=== PATIENT | female | born 1985 | race Caucasian/White ===

== ENCOUNTER 2017-12-18 09:47 | Inpatient (IN) | payer BC ==
[~2017-12-18] VITALS: Ht 165.1 cm; Wt 73.0 kg
[2017-12-18] VITALS (12 sets, daily range): BP systolic 94–107; BP diastolic 47–60; PULSE 62–79; RESP 16–24; TEMP 97.9–98.3; O2SAT 97–100
[2017-12-18] MEDS ORDERED: ACYC400T PO (10:12)
[2017-12-18] MEDS ORDERED: LACTATED RINGER'S 1000 ML INJ 1,000 ML IV ONE (10:41)
--- NOTE | 2017-12-18 10:41 | PD ---
HPI Chief Complaint Contractions Date Seen: Dec 18, 2017 Time Seen: 10:31 Travel History International Travel<30 Days: No Contact w/Intl Traveler<30Days: No Known Affected Area: No History of Present Illness HPI 32-year-old who is at 39 weeks 6 days comes in complaining of contractions , light vaginal bleeding, and some thick vaginal discharge. Contractions began about midnight and they have been getting steadily worse through the night. Last cervical exam was Friday cervix was 1 cm at the time. Patient has HSV and noticed the beginnings of a lesion last Friday, it became a full-fledged lesion on the left side of the vagina and a second lesion around the anal area and she started acyclovir on Friday at 400 mg 3 times a day. Lesion has not completely healed at this time Weeks Gestation: 39 Para: 0 : 1 History Past Medical History Medical History: Denies Significant Hx Past Surgical History Surgical History: No Previous Surgery Family History Family History: Negative Social History Alcohol Use: No Tobacco Use: No Substance Abuse: No Allergies-Medications (Allergen,Severity, Reaction): Coded Allergies: Sulfa (Sulfonamide Antibiotics) (Verified Allergy, Mild, RASH, 12/18/17) ITCHY, REDNESS AND BURNING Home Meds Reported Medications Acyclovir (Acyclovir) 400 Mg Tab, 400 MG PO TID for Mgmt Viral Infection, TAB 0 Refills 12/18/17 Review of Systems Except as stated in HPI: all other systems reviewed are Neg Physical Exam Narrative GENERAL: Well-nourished, well-developed patient. SKIN: Warm and dry. HEAD: Normocephalic and atraumatic. EYES: No scleral icterus. No injection or drainage. ENT: No nasal drainage noted. Mucous membranes pink. Airway patent. NECK: Supple, trachea midline. No JVD. CARDIOVASCULAR: Regular rate and rhythm without murmurs, gallops, or rubs. RESPIRATORY: Breath sounds equal bilaterally. No accessory muscle use. ABDOMEN/GI: Abdomen soft, non-tender, bowel sounds present, no rebound, no guarding Gravid to [36-] weeks size Fundal Height: [-] GENITOURINARY: External Genitalia: intact and normal in appearance BUS glands: [-] Erythema noted to the left of the vaginal introitus at the perineum and another lesion noted around anal opening Cervix: [-] Anterior Dilatation: [-] 4 Effacement: [-] 90 Station: [-] -1 Presentation: [-] Vertex Membranes: [intact or ruptured] intact Uterine Contractions: [-] Every 5 FHT's: Category: [-] 1 Baseline: [-] Reactive: [-] 140 moderate Variability: [-] Moderate Decels: [-] Absent EXTREMITIES: No cyanosis or edema. BACK: Nontender without obvious deformity. No CVA tenderness. NEUROLOGICAL: Awake and alert. Motor and sensory grossly within normal limits. Five out of 5 muscle strength in all muscle groups. Normal speech. Data Data Vital Signs Reviewed: Yes MDM Medical Record Reviewed: Yes Narrative Course / MDM 32-year-old who is an active labor at 4 cm with active HSV lesions B strep is negative Plan Patient understands the need for primary section given the recurrent nature of HSV lesions She last ate at 2 AM, drink water approximately an hour ago Dr Case is aware of admission Diagnosis Diagnosis: Primary Impression: 39 weeks gestation of Additional Impressions: Uterine contractions during Herpes genitalia Cherry Martinez MD Dec 18, 2017 10:41
[2017-12-18] MEDS ORDERED: LACTATED RINGER'S 1000 ML INJ 1,000 ML IV SCH ×2 (11:11→17:59)
[2017-12-18 11:25] LABS: AUTOMATED NEUTROPHIL # 9.1 TH/MM3 (1.8-7.7); BASOPHIL % 0.1 % (0.0-2.0); EOSINOPHIL % 0.3 % (0.0-4.0); HEMATOCRIT 35.5 % (35.0-46.0); LYMPH % 15.2 % (9.0-44.0); LYMPHOCYTE # 1.8 TH/MM3 (1.0-4.8); MEAN CELL VOLUME 89.2 FL (80.0-100.0); MEAN CORPUSCULAR HEMOGLOBIN 30.1 PG (27.0-34.0); MEAN CORPUSCULAR HGB CONC 33.8 % (32.0-36.0); MEAN PLATELET VOLUME 9.9 FL (7.0-11.0); MONO % 7.5 % (0.0-8.0); MONOCYTE # 0.9 TH/MM3 (0-0.9); NEUT % 76.9 % (16.0-70.0); PLATELET COUNT 218 TH/MM3 (150-450); RED BLOOD COUNT 3.98 MIL/MM3 (4.00-5.30); RED CELL DISTRIBUTION WIDTH 14.2 % (11.6-17.2); WHITE BLOOD COUNT 11.8 TH/MM3 (4.0-11.0)
[2017-12-18] MEDS ORDERED: ACETAMINOPHEN 1000 MG/100 ML 100 ML IV ONE (11:45)
[2017-12-18] MEDS ORDERED: MORPHINE SULFATE PF 5 MG/10 ML VIAL ONE (11:45)
[2017-12-18] MEDS ORDERED: ceFAZolin 2 GM PREMIX 50 ML IV SCH (11:45)
[2017-12-18] MEDS ORDERED: ONDANSETRON HCL 4 MG/2 ML VIAL IV ONE (12:00)
[2017-12-18] MEDS ORDERED: DEXAMETHASONE SOD PHOS 4 MG/ML VIAL IV ONE (12:00)
[2017-12-18] MEDS ORDERED: OXYTOCIN 10 UNIT/ML AMP IV ONE (12:00)
[2017-12-18] MEDS ORDERED: PHENYLEPH/NS 1000 MCG/10 ML SYR IV ONE (12:00)
[2017-12-18] MEDS ORDERED: ceFAZolin INJ 1,000 MG VIAL IV ONE (12:00)
[2017-12-18] MEDS ORDERED: CITRIC ACID-SODIUM CITRATE LIQ 30 ML UDC PO SCH (12:15)
--- NOTE | 2017-12-18 12:59 | PD.OB.DELI ---
Procedure Note Section Procedure Pre Op Diagnosis: (1) 39 weeks gestation of (2) Herpes genitalia Post Op Diagnosis: (1) 39 weeks gestation of (2) Herpes genitalia Performed by Rox Case Procedure: Primary Low Transverse Sec Indication for delivery: Maternal medical problems Previous condition: None Informed consent obtained: For anesthesia, For procedure Confirmed correct: Patient, Procedure, Site, Time-out taken Anesthesia: Spinal Medication prior to procedure: As documented in eMAR Monitoring during procedure: Blood pressure monitoring, Pulse oximetry Urinary catheter: Inserted using sterile technique, To dependent drainage, ml urine output (200) Sterile preparation: With 2% chlorexidine (Hibiclens) Position: Supine with wedge to right side, Supine with safety belt applied Operative Features Uterine Incision: Low transverse w/knife / blunt ext Membranes Ruptured: Previously (SROM afer spinal placed) Presentation: Other (LOT, asynclitic, mild molding) Delivery date: Dec 18, 2017 Delivery time: 12:15 Delivery of : Uneventful : Male One Minute : 8 Five Minute : 9 Weight: 3750g Status of infant: Viable, Cord blood, Nursery present Placenta delivered: Intact Medications: Antibiotics, Oxytocin Estimated blood loss: 500ml Procedure tolerated: Well Maternal Condition: Stable Condition: Stable Procedure in detail dictation Rox Case MD Dec 18, 2017 12:58
[2017-12-18] MEDS ORDERED: OXYTOCIN 30 UNITS-500ML PREMIX 500 ML IV ONE (13:00)
[2017-12-18] MEDS ORDERED: oxyCODONE/ACETAMINOPHEN 5 MG/325 MG TAB PO PRN (13:00)
[2017-12-18] MEDS ORDERED: ZOLPIDEM TARTRATE 5 MG TAB PO PRN (13:00)
[2017-12-18] MEDS ORDERED: SIMETHICONE 80 MG CHEWABLE TAB PO PRN (13:00)
[2017-12-18] MEDS ORDERED: SODIUM CHLORIDE 0.9% FLUSH 10 ML FLUSH IV FLUSH PRN (13:00)
[2017-12-18] MEDS ORDERED: ONDANSETRON HCL 4 MG/2 ML VIAL IV PUSH PRN (13:00)
[2017-12-18] MEDS ORDERED: EPIDURAL-DIPHENHYDRAMINE HCL 50 MG CAP PO PRN (15:00)
[2017-12-18] MEDS ORDERED: EPIDURAL-DIPHENHYDRAMINE HCL 50 MG/ML VIAL IV PUSH PRN (15:00)
[2017-12-18] MEDS ORDERED: EPIDURAL-DO NOT ADMINISTER ANTICOAGULANTS PRN (15:00)
[2017-12-18] MEDS ORDERED: EPIDURAL-NALOXONE HCL 0.4 MG/ML AMP IV PUSH PRN (15:00)
[2017-12-18] MEDS ORDERED: EPIDURAL-NO SYSTEMIC NARCOTICS PRN (15:00)
[2017-12-18] MEDS: ACYCLOVIR 200 MG CAP PO SCH (18:22)
[2017-12-18] MEDS: DOCUSATE SODIUM 50 MG/SENNA 8.6 MG TAB PO PRN (20:36)
[2017-12-18] MEDS: IBUPROFEN 600 MG TAB PO PRN (20:36)
[2017-12-18] MEDS ORDERED: OXYTOCIN 30 UNITS-500ML PREMIX 500 ML IV PRN (23:00)
[2017-12-18] MEDS: ACETAMINOPHEN 1000 MG/100 ML 100 ML IV SCH (23:36)
[2017-12-19 01:06] VITALS: BP 93/51; PULSE 68; RESP 18; TEMP 98.4
[2017-12-19 05:02] VITALS: BP 86/50; PULSE 72; RESP 17; TEMP 97.5
[2017-12-19] MEDS: ACETAMINOPHEN 1000 MG/100 ML 100 ML IV SCH (06:14)
[2017-12-19 07:50] VITALS: BP 90/48; PULSE 72; RESP 18; TEMP 98
[2017-12-19 07:53] LABS: AUTOMATED NEUTROPHIL # 11.5 TH/MM3 (1.8-7.7); BASOPHIL % 0.2 % (0.0-2.0); EOSINOPHIL # 0.1 TH/MM3 (0-0.4); EOSINOPHIL % 0.4 % (0.0-4.0); HEMATOCRIT 30.4 % (35.0-46.0); HEMOGLOBIN 10.2 GM/DL (11.6-15.3); LYMPHOCYTE # 2.6 TH/MM3 (1.0-4.8); MEAN CELL VOLUME 89.4 FL (80.0-100.0); MEAN CORPUSCULAR HGB CONC 33.5 % (32.0-36.0); MEAN PLATELET VOLUME 9.5 FL (7.0-11.0); MONO % 7.1 % (0.0-8.0); MONOCYTE # 1.1 TH/MM3 (0-0.9); NEUT % 75.3 % (16.0-70.0); PLATELET COUNT 184 TH/MM3 (150-450); RED CELL DISTRIBUTION WIDTH 14.3 % (11.6-17.2); WHITE BLOOD COUNT 15.3 TH/MM3 (4.0-11.0)
[2017-12-19] MEDS: ACYCLOVIR 200 MG CAP PO SCH ×3 (09:38→18:00)
[2017-12-19] MEDS: IBUPROFEN 600 MG TAB PO PRN ×3 (10:19→22:22)
[2017-12-19] MEDS: oxyCODONE/ACETAMINOPHEN 5 MG/325 MG TAB PO PRN ×3 (10:19→22:22)
--- NOTE | 2017-12-19 11:16 | HHI.OB ---
Subjective Post Operative Day: 1 Remarks Doing well post section for failure to descend Objective Vitals/I&O Vital Signs Date Time Temp Pulse Resp B/P (MAP) Pulse Ox O2 Delivery O2 Flow Rate FiO2 12/19/17 07:50 98.0 72 18 12/19/17 07:50 90/48 (62) 12/19/17 05:02 97.5 72 17 86/50 (62) 12/19/17 01:06 98.4 68 18 93/51 (65) 12/18/17 20:00 104/47 (66) 12/18/17 19:00 104/47 (66) 12/18/17 19:00 98.3 69 16 97 12/18/17 14:50 98.2 18 12/18/17 14:50 68 107/60 (76) 12/18/17 14:16 62 18 96/53 (67) 98 12/18/17 14:01 22 99 12/18/17 14:00 71 97/55 (69) 12/18/17 13:46 72 17 105/50 (68) 100 12/18/17 13:31 67 24 105/57 (73) 100 12/18/17 13:17 68 20 99 12/18/17 13:15 94/52 (66) 12/18/17 13:04 97.9 12/18/17 13:03 79 20 97 12/18/17 13:03 100/58 (72) Result Diagram: 12/19/17 0727 Objective Remarks GENERAL: Well-nourished, well-developed patient. CARDIOVASCULAR: Regular rate and rhythm without murmurs, gallops, or rubs. RESPIRATORY: Breath sounds equal bilaterally. No accessory muscle use. ABDOMEN/GI: Abdomen soft, non-tender, bowel sounds present. Incision: Clean, dry and intact. Fundus: Firm, non-tender at umbilicus. GENITOURINARY: Light to moderate bleeding. EXTREMITIES: No cyanosis or edema, non-tender, without signs of DVT. Medications and IVs Current Medications Medications (Trade) Dose Ordered Sig/Margarita Route Start Time Stop Time Status Last Admin Lactated Ringer's 1,000 ml @ 100 mls/hr Q10H IV 12/18/17 17:59 12/19/17 13:58 Oxytocin 500 ml @ 100 mls/hr UNSCH X1 PRN IV 12/18/17 23:00 12/19/17 22:59 (NS Flush) 2 ml BID IV FLUSH 12/18/17 21:00 (NS Flush) 2 ml UNSCH PRN IV FLUSH 12/18/17 13:00 (Mylicon Chew) 80 mg QID PRN PO 12/18/17 13:00 (Motrin) 600 mg Q6H PRN PO 12/18/17 13:00 12/19/17 10:19 (Percocet 5-325 Mg) 1 tab Q4H PRN PO 12/18/17 13:00 12/19/17 10:19 (Percocet 5-325 Mg) 2 tab Q4H PRN PO 12/18/17 13:00 (Nerissa-Colace) 2 tab Q12H PRN PO 12/18/17 13:00 12/18/17 20:36 (Ambien) 5 mg HS PRN PO 12/18/17 13:00 (M-M-R Ii Inj) 0.5 ml ONCE ONCE SQ 12/19/17 16:00 12/19/17 16:01 (Boostrix Inj) 0.5 ml ONCE ONCE IM 12/19/17 16:00 12/19/17 16:01 (Zofran Inj) 4 mg Q6H PRN IV PUSH 12/18/17 13:00 (Zovirax) 400 mg TID PO 12/18/17 18:00 12/19/17 09:38 Miscellaneous Information NO SYSTEMIC NARCOTICS TO BE GIVEN FO... UNSCH PRN .XX 12/18/17 15:00 12/19/17 14:59 (Narcan Inj) 0.4 mg UNSCH PRN IV PUSH 12/18/17 15:00 12/19/17 14:59 (Benadryl Inj) 25 mg Q6H PRN IV PUSH 12/18/17 15:00 12/19/17 14:59 (Benadryl) 50 mg Q6H PRN PO 12/18/17 15:00 12/19/17 14:59 Miscellaneous Information ALL NURSING DEPARTMENTS UNSCH PRN .XX 12/18/17 15:00 12/19/17 14:59 Assessment/Plan Assessment and Plan POD 1 doing well intends to nurse counseled on circumcision Home POD 2 or 3 Jessi Lake MD Dec 19, 2017 11:16
--- NOTE | 2017-12-19 11:17 | HHI.DCPOC ---
Discharge Care Plan Report Symptoms to Your Doctor -Temperature above 100.5 degrees -Redness, of incision or excessive or foul smelling drainage -Unusual pain or calf pain -Increased vaginal bleeding -Painful or difficulty urinating -Feelings of extreme sadness or anxiety after 2 weeks Goals to Promote Your Health * To prevent worsening of your condition and complications * To maintain your health at the optimal level Directions to Meet Your Goals Take your medications as prescribed Follow your dietary instruction Follow activity as directed Ensure plenty of rest for recovery Drink fluids for hydration Keep your appointments as scheduled Take your immunizations and boosters as scheduled If your symptoms worsen call your PCP, if no PCP go to Urgent Care Center or Emergency Room Smoking is Dangerous to Your Health. Avoid second hand smoke Call the 24-hour crisis hotline for domestic abuse at Jessi Lake MD Dec 19, 2017 11:17
--- NOTE | 2017-12-19 11:51 | MP ---
cc: Rox Case MD DATE OF OPERATION: 12/18/2017 PREOPERATIVE DIAGNOSIS: 1. Intrauterine at 39 weeks. 2. Active herpes outbreak. POSTOPERATIVE DIAGNOSIS: 1. Intrauterine at 39 weeks. 2. Active herpes outbreak. INDICATIONS FOR PROCEDURE: The patient is a 32-year-old G1, P0, with intrauterine at 39 weeks plus, who presented in active labor with active herpes lesions. Given the risks, decision was made to proceed with a primary delivery. PROCEDURE PERFORMED: Primary low transverse delivery. SURGEON: Rox Case MD [employer]: [employer]. ANTIBIOTICS: Ancef 2 grams IV given preincision. DEEP VENOUS THROMBOSIS PROPHYLAXIS: Sequential compression devices, bilateral extremities. INTRAVENOUS FLUIDS: 1200 mL of lactated Ringer. URINE OUTPUT: 200 mL of clear yellow urine at the end of the case. ESTIMATED BLOOD LOSS Was 100 mL. INTRAOPERATIVE FINDINGS: Viable male infant with Apgars of 8 and 9 at 1 minute and 5-minute respectively. weight of 8 pounds and 4 ounces left occiput transverse presentation, asynclitic and with minor molding noted. Placenta intact, 3-vessel cord. Uterus, tubes and ovaries within normal limits. PROCEDURE IN DETAIL: After the informed consent, the patient was taken to the operating room, where spinal anesthesia was administered without complication. She was placed in the dorsal supine position with a slight leftward tilt. SCDs were in place. Her was placed under sterile condition. The abdomen was prepped and draped in normal sterile fashion. A Pfannenstiel skin incision was made with a scalpel, carried down to the underlying layer of fascia with the Bovie. The fascia was incised in the midline. This incision was extended bilaterally with Worley scissors. The superior aspect of the fascial incision was grasped with Charisse clamps, elevated and the rectus muscles dissected off bluntly, as well as with aid of Worley scissors. The same was repeated inferior aspect. The rectus muscles were in the midline. The peritoneum was entered bluntly. This incision was extended bluntly. The bladder blade was inserted. A bladder flap was created with Metzenbaum scissors. The bladder blade was then reinserted. A low transverse uterine incision was made with a scalpel and extended bluntly. The head was grasped, flexed and elevated from the pelvis. Suction was noted. Of note, as the patient was being prepped, she was noted to have a small leakage of amniotic fluid, considered to have spontaneously ruptured immediately prior to surgery. Fluid around the infant was clear. The head was delivered with gentle fundal pressure. The body readily followed. Delayed cord clamping was performed. Pitocin was started immediately after delivery of the infant. The cord was doubly clamped and cut. Baby was handed off to waiting nursery team. The placenta was delivered with gentle cord traction and uterine massage. The uterus was exteriorized. All of the debris and membranes was removed with moist laparotomy sponges. The uterus was repaired in 2 layers with #1 chromic in a running locked fashion, followed by an imbricating layer. Posterior cul-de-sac was irrigated and suctioned. The hysterotomy was inspected and noted to be hemostatic. The uterus was returned to the abdomen. The anterior cul-de-sac was irrigated and suctioned. Again, the hysterotomy was noted to be hemostatic. The peritoneum was closed with 2-0 chromic in a running fashion. The fascia was closed with a 4-0 Vicryl in a running fashion. Subcutaneous tissue was irrigated and hemostasis was obtained with the Bovie. The skin was closed with 3-0 Monocryl, Steri-Strips and a PermaFoam dressing were placed. The patient tolerated the procedure well. She was taken to PACU in stable condition. She is an acceptable candidate for vaginal after delivery. COMPLICATIONS: None. COUNTS: Correct x 3. SPECIMEN: Cord blood. MD MICHELLE Zavaleta/BRIANNE , 08:21 PM , 08:43 PM
[2017-12-19] MEDS ORDERED: DIPHTH/TETANUS/ACEL PERTUSSIS (BOOSTER) 0.5 ML VIAL/PFS IM ONE (16:00)
[2017-12-19] MEDS ORDERED: MEASLES, MUMPS, RUBELLA VACCINE 0.5 ML VIAL SQ ONE (16:00)
[2017-12-19 20:00] VITALS: BP 93/54; PULSE 73; RESP 16; TEMP 98.1; O2SAT 97
[2017-12-19] MEDS: DOCUSATE SODIUM 50 MG/SENNA 8.6 MG TAB PO PRN (22:22)
[2017-12-20] MEDS: oxyCODONE/ACETAMINOPHEN 5 MG/325 MG TAB PO PRN ×3 (03:22→20:04)
[2017-12-20] MEDS: IBUPROFEN 600 MG TAB PO PRN ×3 (04:52→20:03)
[2017-12-20 07:00] VITALS: BP 89/49; PULSE 90; RESP 18; TEMP 97.9; O2SAT 99
[2017-12-20 07:30] VITALS: PULSE 85
--- NOTE | 2017-12-20 07:33 | HHI.OB ---
Subjective Post Operative Day: 2 Objective Vitals/I&O Vital Signs Date Time Temp Pulse Resp B/P (MAP) Pulse Ox O2 Delivery O2 Flow Rate FiO2 12/20/17 07:00 97.9 90 18 89/49 (62) 99 12/19/17 20:00 98.1 73 16 93/54 (67) 97 12/19/17 07:50 98.0 72 18 12/19/17 07:50 90/48 (62) Result Diagram: 12/19/17 0727 Objective Remarks GENERAL: Well-nourished, well-developed patient. CARDIOVASCULAR: Regular rate and rhythm without murmurs, gallops, or rubs. RESPIRATORY: Breath sounds equal bilaterally. No accessory muscle use. ABDOMEN/GI: Abdomen soft, non-tender, bowel sounds present. Incision: Clean, dry and intact. Fundus: Firm, non-tender at umbilicus. GENITOURINARY: Light to moderate bleeding. EXTREMITIES: No cyanosis or edema, non-tender, without signs of DVT. Medications and IVs Current Medications Medications (Trade) Dose Ordered Sig/Margarita Route Start Time Stop Time Status Last Admin (NS Flush) 2 ml BID IV FLUSH 12/18/17 21:00 (NS Flush) 2 ml UNSCH PRN IV FLUSH 12/18/17 13:00 (Mylicon Chew) 80 mg QID PRN PO 12/18/17 13:00 (Motrin) 600 mg Q6H PRN PO 12/18/17 13:00 12/20/17 04:52 (Percocet 5-325 Mg) 1 tab Q4H PRN PO 12/18/17 13:00 12/20/17 03:22 (Percocet 5-325 Mg) 2 tab Q4H PRN PO 12/18/17 13:00 (Nerissa-Colace) 2 tab Q12H PRN PO 12/18/17 13:00 12/19/17 22:22 (Ambien) 5 mg HS PRN PO 12/18/17 13:00 (Zofran Inj) 4 mg Q6H PRN IV PUSH 12/18/17 13:00 (Zovirax) 400 mg TID PO 12/18/17 18:00 12/19/17 18:00 Assessment/Plan Assessment and Plan POD 1 doing well intends to nurse counseled on circumcision Home POD 2 or 3 POD 2 doing well with nursing baby post circumcision home in am Friday Jessi Lake MD Dec 20, 2017 07:33
[2017-12-20] MEDS ORDERED: OXYC1TAB63 PO (07:34)
[2017-12-20 07:39] VITALS: BP 94/55
[2017-12-20] MEDS: ACYCLOVIR 200 MG CAP PO SCH ×2 (09:39→13:18)
[2017-12-20] MEDS: SODIUM CHLORIDE 0.9% FLUSH 10 ML FLUSH IV FLUSH SCH (09:47)
[2017-12-20 15:30] VITALS: BP 95/52; PULSE 76; RESP 16; TEMP 97.2
[2017-12-20] MEDS: DOCUSATE SODIUM 50 MG/SENNA 8.6 MG TAB PO PRN (15:51)
[2017-12-20 20:45] VITALS: BP 109/60; PULSE 84; RESP 17; TEMP 98.1
[2017-12-21] MEDS: IBUPROFEN 600 MG TAB PO PRN (03:50)
[2017-12-21] MEDS: oxyCODONE/ACETAMINOPHEN 5 MG/325 MG TAB PO PRN (03:51)
--- NOTE | 2017-12-21 07:35 | HHI.OB ---
Subjective Post Operative Day: 3 Remarks doing well nipples sore lochia minimal Objective Vitals/I&O Vital Signs Date Time Temp Pulse Resp B/P (MAP) Pulse Ox O2 Delivery O2 Flow Rate FiO2 12/20/17 20:45 98.1 84 17 109/60 (76) 12/20/17 15:30 97.2 76 16 95/52 (66) 12/20/17 07:39 94/55 (68) Result Diagram: 12/19/17 0727 Objective Remarks GENERAL: Well-nourished, well-developed patient. CARDIOVASCULAR: Regular rate and rhythm without murmurs, gallops, or rubs. RESPIRATORY: Breath sounds equal bilaterally. No accessory muscle use. ABDOMEN/GI: Abdomen soft, non-tender, bowel sounds present. Incision: Clean, dry and intact. Fundus: Firm, non-tender at umbilicus. GENITOURINARY: Light to moderate bleeding. EXTREMITIES: No cyanosis or edema, non-tender, without signs of DVT. Medications and IVs Current Medications Medications (Trade) Dose Ordered Sig/Margarita Route Start Time Stop Time Status Last Admin (NS Flush) 2 ml BID IV FLUSH 12/18/17 21:00 (NS Flush) 2 ml UNSCH PRN IV FLUSH 12/18/17 13:00 (Mylicon Chew) 80 mg QID PRN PO 12/18/17 13:00 (Motrin) 600 mg Q6H PRN PO 12/18/17 13:00 12/21/17 03:50 (Percocet 5-325 Mg) 1 tab Q4H PRN PO 12/18/17 13:00 12/21/17 03:51 (Percocet 5-325 Mg) 2 tab Q4H PRN PO 12/18/17 13:00 (Nerissa-Colace) 2 tab Q12H PRN PO 12/18/17 13:00 12/20/17 15:51 (Ambien) 5 mg HS PRN PO 12/18/17 13:00 (Zofran Inj) 4 mg Q6H PRN IV PUSH 12/18/17 13:00 (Zovirax) 400 mg TID PO 12/18/17 18:00 12/20/17 13:18 Assessment/Plan Assessment and Plan POD 1 doing well intends to nurse counseled on circumcision Home POD 2 or 3 POD 2 doing well with nursing baby post circumcision home in am Friday POD 3 nursing well no complains discharge to home RTO 1 week Jessi Lake MD Dec 21, 2017 07:35
[2017-12-21 08:20] VITALS: BP 94/52; PULSE 77; RESP 20; TEMP 97.8
[2017-12-21] MEDS: SODIUM CHLORIDE 0.9% FLUSH 10 ML FLUSH IV FLUSH SCH (08:48)
[2017-12-21] MEDS: ACYCLOVIR 200 MG CAP PO SCH (09:03)
== END 2017-12-21 12:40 | disposition home or self-care (01) | DRG 766 ==
LOC: HOBED 09:47 → H2EB 10:41 → H1EA 14:34
PROVIDERS: ADMIT Obstetrics & Gynecology; ATTEND Obstetrics & Gynecology
PROC: 10D00Z1 Extraction of Products of Conception, Low, Open Approach (ICD-10-PCS; principal; 2017-12-18)
DX: O98.32 Other infections with a predominantly sexual mode of transmission complicating childbirth (principal); A60.00 Herpesviral infection of urogenital system, unspecified; O32.2XX0 Maternal care for transverse and oblique lie, not applicable or unspecified; Z37.0 Single live birth; Z3A.39 39 weeks gestation of pregnancy
CPT/HCPCS: 59025; 80307; 85025; 85461; 86850; 86900; 86901; 90384; J0131; J0690; J1100; J2274; J2370; J2405; J2590; J2790; J3010; J7120